=== PATIENT | female | born 1945 | race African-American/Black ===

== ENCOUNTER 2017-03-15 10:46 | Emergency (ER) | payer OTHER, MEDICAID ==
[~2017-03-15] VITALS: Ht 170.2 cm; Wt 83.0 kg
[~2017-03-15 10:46] MED LIST: ASPI-1079 PO; ATEN1TAB42 PO; ATOR40TA70 PO; CHOL500010 PO; CYAN100096 PO; DOXYCYCLINE; FERR1TAB PO; LISI10TA5 PO; OMEP20CA4 PO; [UNRECOGNIZED DRUG - OTHER]; [UNRECOGNIZED DRUG - OTHER]
[2017-03-15 11:35] LABS: BASOPHILS % 0.7 % (0.0-2.0); EOSINOPHILS % 1.1 % (0.0-5.0); HEMATOCRIT. 37.6 % (36.0-48.0); HEMOGLOBIN. 12.1 g/dL (12.0-16.0); LYMPHOCYTES % 16.1 % (20.0-50.0); MEAN CORPUSCULAR HGB CONC 32.2 g/dL (31.0-37.0); MEAN CORPUSCULAR VOLUME 90.1 fL (81.0-99.0); MEAN PLATELET VOLUME 7.6 fl (7.4-10.4); MONOCYTES % 5.5 % (2.0-8.0); NEUTROPHILS % 76.6 % (40.0-76.0); PLATELET 198 x1000/uL (130-400); RED BLOOD CELL COUNT 4.17 mill/uL (4.2-5.4); RED CELL DISTRIBUTION WIDTH 13.5 % (11.6-14.6); WHITE BLOOD COUNT 6.1 x1000/uL (4.5-11.0)
[2017-03-15 11:44] LABS: ALBUMIN 3.6 g/dL (3.4-5.0); ANION GAP 12; CALCIUM 9.3 mg/dL (8.5-10.1); CARBON DIOXIDE 25 mEq/L (21-32); CHLORIDE 111 mEq/L (98-107); INDEX HEMOLYSI 1 (1-3); INDEX ICTERIC 1 (1-4); INDEX LIPEMIC 1 (1-3); UREA NITROGEN BLOOD 56 mg/dL (7-21)
[2017-03-15 11:51] LABS: ALANINE AMINOTRANSFERASE 21 IU/L (13-61); TROPONIN I < 0.02 ng/mL (0.00-0.04); eGFR 24 mL/min (>60)
[2017-03-15 13:25] LABS: CLARITY URINE CLOUDY (CLEAR); COLOR URINE YELLOW (YELLOW); GLUCOSE URINE NEGATIVE (NEGATIVE); KETONES URINE NEGATIVE (NEGATIVE); LEUKOCYTE ESTERASE URINE 3+ (NEGATIVE); NITRITE URINE NEGATIVE (NEGATIVE); OCCULT BLOOD URINE NEGATIVE (NEGATIVE); PH URINE 5.5 (4.5-8.0); PROTEIN URINE 2+ (NEGATIVE); SPECIFIC GRAVITY URINE 1.015 (1.005-1.030); UROBILINOGEN URINE 0.2 E.U./dL (0.2-1.0)
[2017-03-15 13:51] LABS: HYALINE CASTS URINE 0-5 /lpf; RBC URINE 0-2 /hpf (0-2); SQUAMOUS EPITHELIAL CELL URINE 3+ /lpf (RARE/1+); WBC URINE 15-25 /hpf (0-2)
[2017-03-15 13:52] LABS: BACTERIA URINE 3+
[2017-03-15] MEDS ORDERED: DEXT 10% WATER 1,000 ML IV ONE (14:06)
[2017-03-15] MEDS ORDERED: CEFTRIAXONE 1 G PREMIX 50 ML IV ONE (14:15)
[2017-03-15 16:58] VITALS: BP 211/98
[2017-03-15] MEDS ORDERED: DEXTROSE 50% WATER 50ML SYRINGE IV ONE ×2 (17:10→17:45)
== END 2017-03-15 17:46 | disposition short-term general hospital (02) ==
LOC: ER 11:25
DX: E11.649 Type 2 diabetes mellitus with hypoglycemia without coma (principal); E11.22 Type 2 diabetes mellitus with diabetic chronic kidney disease; N18.6 End stage renal disease; I50.9 Heart failure, unspecified; Z79.1 Long term (current) use of non-steroidal anti-inflammatories (NSAID); Z79.82 Long term (current) use of aspirin; Z79.899 Other long term (current) drug therapy
CPT/HCPCS: 36415; 71010; 72100; 73502; 80053; 81001; 82962; 84484; 85025; 87086; 93005; 96365; 96366; 96375; 99285; J0696

== ENCOUNTER 2021-03-15 18:03 | Emergency (ER) | payer OTHER, MEDICAID ==
[~2021-03-15] VITALS: Ht 165.1 cm; Wt 71.0 kg
[~2021-03-15 18:03] MED LIST changes: +LISI10TA26 PO; -LISI10TA5 PO
[2021-03-15 21:17] LABS: BASOPHILS % 0.5 % (0.0-2.0); HEMATOCRIT. 31.3 % (36.0-48.0); HEMOGLOBIN. 10.4 g/dL (12.0-16.0); LYMPHOCYTES % 26.5 % (20.0-50.0); MEAN CORPUSCULAR HEMOGLOBIN 30.1 pg (28.0-32.0); MEAN CORPUSCULAR VOLUME 90.7 fL (81.0-99.0); MEAN PLATELET VOLUME 8.9 fl (7.4-10.4); MONOCYTES % 8.9 % (2.0-8.0); NEUTROPHILS % 59.1 % (40.0-76.0); PLATELET 192 x1000/uL (130-400); RED BLOOD CELL COUNT 3.45 mill/uL (4.2-5.4); RED CELL DISTRIBUTION WIDTH 13.8 % (11.6-14.6)
[2021-03-15 21:20] LABS: CHLORIDE 116 mEq/L (98-107)
[2021-03-15 21:25] LABS: PROTHROMBIN TIME 10.9 sec (9.6-11.0)
[2021-03-15] MEDS ORDERED: DEXTROSE 50% WATER 50ML SYRINGE IV NR (21:45)
[2021-03-15] MEDS ORDERED: SODIUM CHLORIDE 0.9% 500 ML IV ONE (21:45)
[2021-03-15 21:53] LABS: CLARITY URINE CLEAR (CLEAR); COLOR URINE YELLOW (YELLOW); KETONES URINE NEGATIVE (NEGATIVE); LEUKOCYTE ESTERASE URINE NEGATIVE (NEGATIVE); NITRITE URINE NEGATIVE (NEGATIVE); OCCULT BLOOD URINE NEGATIVE (NEGATIVE); PROTEIN URINE 2+ (NEGATIVE); SPECIFIC GRAVITY URINE 1.014 (1.005-1.030); UROBILINOGEN URINE 0.2 E.U./dL (0.2-1.0)
[2021-03-15 23:51] VITALS: BP 155/71
== END 2021-03-16 00:20 | disposition short-term general hospital (02) ==
LOC: ER 18:03
DX: E11.649 Type 2 diabetes mellitus with hypoglycemia without coma (principal); N17.9 Acute kidney failure, unspecified; I50.9 Heart failure, unspecified; J44.9 Chronic obstructive pulmonary disease, unspecified; Z86.73 Personal history of transient ischemic attack (TIA), and cerebral infarction without residual deficits
CPT/HCPCS: 36415; 71045; 80053; 81003; 82962; 83605; 84145; 84484; 85025; 93005; 96361; 96374; 99285

== ENCOUNTER 2023-06-28 15:09 | Emergency (ER) | payer OTHER, MEDICAID ==
[~2023-06-28] VITALS: Ht 162.6 cm; Wt 64.0 kg
[2023-06-28] MEDS ORDERED: METHYLPREDNISOLONE SOD SUCC 125MG/2ML (ACT-O-VIAL) IV STA (15:13)
[2023-06-28] MEDS ORDERED: IPRATROPIUM BROMIDE (0.02%) 0.5MG/2.5ML NEB HHN STA (15:13)
[2023-06-28] MEDS ORDERED: ALBUTEROL (0.083%) 2.5MG/3ML NEB HHN STA (15:13)
[2023-06-28] MEDS ORDERED: AZITHROMYCIN 500MG/250ML 250 ML IV ONE (15:15)
[2023-06-28] MEDS ORDERED: METHYLPREDNISOLONE SOD SUCC 125MG VIAL IV NR (15:45)
[2023-06-28 16:23] LABS: BASOPHILS % 0.9 % (0.0-2.0); EOSINOPHILS % 0.6 % (0.0-5.0); HEMATOCRIT. 27.6 % (36.0-48.0); LYMPHOCYTES % 24.1 % (20.0-50.0); MEAN CORPUSCULAR HEMOGLOBIN 29.2 pg (28.0-32.0); MEAN CORPUSCULAR HGB CONC 32.7 g/dL (31.0-37.0); MEAN CORPUSCULAR VOLUME 89.3 fL (81.0-99.0); MEAN PLATELET VOLUME 6.9 fl (7.4-10.4); MONOCYTES % 12.3 % (2.0-8.0); NEUTROPHILS % 62.1 % (40.0-76.0); PLATELET 137 x1000/uL (130-400); RED CELL DISTRIBUTION WIDTH 14.1 % (11.6-14.6)
[2023-06-28 16:34] LABS: CHLORIDE 111 mEq/L (98-107); INDEX HEMOLYSI 1 (1-3); INDEX ICTERIC 1 (1-4); INDEX LIPEMIC 1 (1-3); POTASSIUM 4.9 mEq/L (3.5-5.1); SODIUM 139 mEq/L (136-145)
[2023-06-28 16:37] LABS: INR 1.1; PARTIAL THROMBOPLASTIN TIME 29.4 sec (23.4-31.0); PROTHROMBIN TIME 11.4 sec (9.6-11.0)
[2023-06-28 16:44] LABS: ALANINE AMINOTRANSFERASE 14 IU/L (13-61); ALBUMIN 3.1 g/dL (3.4-5.0); ASPARTATE AMINOTRANSFERASE 20 IU/L (15-37); BILIRUBIN TOTAL 0.6 mg/dL (0.1-1.0); CALCIUM 9.6 mg/dL (8.5-10.1); CARBON DIOXIDE 23 mEq/L (21-32); CREATININE 4.8 mg/dL (0.6-1.3); GLUCOSE 110 mg/dL (70-105); NT PRO B-TYPE NATRIURETIC PEP 4028 pg/mL (5-125); PROTEIN TOTAL 7.6 g/dL (6.0-8.3); TROPONIN I HIGH SENSITIVITY 21 ng/L (<54); UREA NITROGEN BLOOD 62 mg/dL (7-21)
[2023-06-28] MEDS ORDERED: ALBUTEROL (0.083%) 2.5MG/3ML NEB HHN NR (20:45)
[2023-06-28] MEDS ORDERED: IPRATROPIUM BROMIDE (0.02%) 0.5MG/2.5ML NEB HHN NR (20:45)
[2023-06-28 21:00] VITALS: PULSE 82; RESP 20; O2SAT 97
[2023-06-28] MEDS: FUROSEMIDE 40MG/4ML VIAL IVP ONE ×2 (22:28→22:29)
[2023-06-28 23:37] VITALS: BP 145/67; PULSE 73; RESP 15; TEMP 98.4
== END 2023-06-29 00:24 | disposition short-term general hospital (02) ==
LOC: ER 15:09 → EDBEDREQ 20:14 → ER 06-29 00:24
DX: I50.9 Heart failure, unspecified (principal); J44.9 Chronic obstructive pulmonary disease, unspecified; Z86.73 Personal history of transient ischemic attack (TIA), and cerebral infarction without residual deficits; N17.9 Acute kidney failure, unspecified; Z79.899 Other long term (current) drug therapy; Z20.822 Contact with and (suspected) exposure to COVID-19
CPT/HCPCS: 99285; 96365; 71045; 96375; 87426; 80053; 82962; 83880; 83605; 85025; 85610; 85730; 87040; 84484; 87804 ×2; 36415; 94640; 93005; J0456; J1940; J2930; C9803

== ENCOUNTER 2024-01-09 17:19 | Emergency (ER) | payer OTHER, MEDICAID ==
[~2024-01-09] VITALS: Ht 167.6 cm; Wt 64.0 kg
[2024-01-09 17:26] VITALS: O2SAT 97
[2024-01-09 18:48] VITALS: TEMP 97.3
[2024-01-09 19:04] LABS: BASOPHILS % 0.6 % (0.0-2.0); EOSINOPHILS % 2.6 % (0.0-5.0); HEMOGLOBIN. 11.5 g/dL (12.0-16.0); LYMPHOCYTES % 35.8 % (20.0-50.0); MEAN CORPUSCULAR HEMOGLOBIN 32.1 pg (28.0-32.0); MEAN CORPUSCULAR VOLUME 94.6 fL (81.0-99.0); MEAN PLATELET VOLUME 7.3 fl (7.4-10.4); MONOCYTES % 8.1 % (2.0-8.0); NEUTROPHILS % 52.9 % (40.0-76.0); PLATELET 168 x1000/uL (130-400); RED BLOOD CELL COUNT 3.59 mill/uL (4.2-5.4); RED CELL DISTRIBUTION WIDTH 15.8 % (11.6-14.6); WHITE BLOOD COUNT 4.9 x1000/uL (4.5-11.0)
[2024-01-09 19:11] LABS: ALANINE AMINOTRANSFERASE 7 IU/L (10-49); ALBUMIN 4.1 g/dL (3.2-4.8); ASPARTATE AMINOTRANSFERASE 34 IU/L (<34); BILIRUBIN TOTAL 0.5 mg/dL (0.1-1.0); CALCIUM 8.9 mg/dL (8.7-10.4); CARBON DIOXIDE 28 mEq/L (21-32); CHLORIDE 100 mEq/L (98-107); CREATININE 1.7 mg/dL (0.6-1.0); GLUCOSE 91 mg/dL (70-105); POTASSIUM 5.1 mEq/L (3.5-5.1); PROTEIN TOTAL 7.5 g/dL (6.0-8.3); SODIUM 136 mEq/L (136-145); TROPONIN I HIGH SENSITIVITY 7 ng/L (3.0-34); UREA NITROGEN BLOOD 9 mg/dL (9-23)
[2024-01-09 22:46] VITALS: BP 143/58; PULSE 70; RESP 13
== END 2024-01-09 20:43 | disposition short-term general hospital (02) ==
LOC: ER 17:32 → EDBEDREQ 17:39 → ER 20:43
DX: I24.9 Acute ischemic heart disease, unspecified (principal); E11.22 Type 2 diabetes mellitus with diabetic chronic kidney disease; N18.6 End stage renal disease; J44.9 Chronic obstructive pulmonary disease, unspecified; I50.9 Heart failure, unspecified; Z88.6 Allergy status to analgesic agent; Z79.899 Other long term (current) drug therapy; Z86.73 Personal history of transient ischemic attack (TIA), and cerebral infarction without residual deficits; Z99.2 Dependence on renal dialysis
CPT/HCPCS: 36415; 71045; 80053; 83880; 84484; 85025; 93005; 99291

== ENCOUNTER 2024-01-23 16:40 | Emergency (ER) | payer OTHER, MEDICAID ==
[~2024-01-23] VITALS: Ht 165.1 cm; Wt 71.0 kg
[2024-01-23 16:48] VITALS: O2SAT 100
[2024-01-23] MEDS: DEXTROSE 50% WATER 50ML SYRINGE IV ONE (18:30)
[2024-01-23 20:08] LABS: BASOPHILS % 0.7 % (0.0-2.0); EOSINOPHILS % 3.7 % (0.0-5.0); HEMATOCRIT. 35.8 % (36.0-48.0); HEMOGLOBIN. 11.7 g/dL (12.0-16.0); LYMPHOCYTES % 32.8 % (20.0-50.0); MEAN CORPUSCULAR HEMOGLOBIN 31.3 pg (28.0-32.0); MEAN CORPUSCULAR HGB CONC 32.7 g/dL (31.0-37.0); MEAN CORPUSCULAR VOLUME 95.7 fL (81.0-99.0); MEAN PLATELET VOLUME 7.7 fl (7.4-10.4); MONOCYTES % 10.5 % (2.0-8.0); NEUTROPHILS % 52.3 % (40.0-76.0); PLATELET 189 x1000/uL (130-400); RED BLOOD CELL COUNT 3.75 mill/uL (4.2-5.4); RED CELL DISTRIBUTION WIDTH 15.8 % (11.6-14.6); WHITE BLOOD COUNT 5.3 x1000/uL (4.5-11.0)
[2024-01-23 20:17] LABS: INR 2.6; PROTHROMBIN TIME 27.2 sec (9.6-11.0)
[2024-01-23 20:23] LABS: ALANINE AMINOTRANSFERASE < 7 IU/L (10-49); ALBUMIN 3.9 g/dL (3.2-4.8); ASPARTATE AMINOTRANSFERASE 20 IU/L (<34); BILIRUBIN TOTAL 0.4 mg/dL (0.1-1.0); CALCIUM 9.3 mg/dL (8.7-10.4); CARBON DIOXIDE 30 mEq/L (21-32); CHLORIDE 103 mEq/L (98-107); CREATININE 1.9 mg/dL (0.6-1.0); GLUCOSE 131 mg/dL (70-105); POTASSIUM 3.7 mEq/L (3.5-5.1); PROTEIN TOTAL 7.8 g/dL (6.0-8.3); SODIUM 137 mEq/L (136-145); TROPONIN I HIGH SENSITIVITY 11 ng/L (3.0-34); UREA NITROGEN BLOOD 12 mg/dL (9-23)
[2024-01-23 22:35] VITALS: BP 98/42; PULSE 67; RESP 14; TEMP 98.1
== END 2024-01-23 23:08 | disposition short-term general hospital (02) ==
LOC: ER 16:40 → EDBEDREQ 16:56 → ER 23:08
DX: R41.82 Altered mental status, unspecified (principal); N18.6 End stage renal disease; N17.9 Acute kidney failure, unspecified; E11.9 Type 2 diabetes mellitus without complications; J44.9 Chronic obstructive pulmonary disease, unspecified; I50.9 Heart failure, unspecified; Z86.73 Personal history of transient ischemic attack (TIA), and cerebral infarction without residual deficits; Z99.2 Dependence on renal dialysis; Z88.8 Allergy status to other drugs, medicaments and biological substances
CPT/HCPCS: 36415; 71045; 80053; 82962; 83605; 84484; 85025; 86850; 86900; 93005; 96374; 99285

== ENCOUNTER 2024-01-29 18:42 | Emergency (ER) | payer OTHER, MEDICAID ==
[~2024-01-29] VITALS: Ht 162.6 cm; Wt 57.0 kg
[2024-01-29 18:53] VITALS: O2SAT 100
[2024-01-29 19:55] LABS: BASOPHILS % 0.5 % (0.0-2.0); EOSINOPHILS % 3.8 % (0.0-5.0); HEMATOCRIT. 30.1 % (36.0-48.0); LYMPHOCYTES % 40.2 % (20.0-50.0); MEAN CORPUSCULAR HEMOGLOBIN 31.2 pg (28.0-32.0); MEAN CORPUSCULAR HGB CONC 33.1 g/dL (31.0-37.0); MEAN CORPUSCULAR VOLUME 94.2 fL (81.0-99.0); MEAN PLATELET VOLUME 8.1 fl (7.4-10.4); MONOCYTES % 9.2 % (2.0-8.0); NEUTROPHILS % 46.3 % (40.0-76.0); PLATELET 166 x1000/uL (130-400); RED CELL DISTRIBUTION WIDTH 15.5 % (11.6-14.6); WHITE BLOOD COUNT 5.2 x1000/uL (4.5-11.0)
[2024-01-29 20:04] LABS: PARTIAL THROMBOPLASTIN TIME 47.2 sec (23.4-31.0); PROTHROMBIN TIME 40.8 sec (9.6-11.0)
[2024-01-29 20:12] LABS: ALANINE AMINOTRANSFERASE 8 IU/L (10-49); ALBUMIN 3.7 g/dL (3.2-4.8); ASPARTATE AMINOTRANSFERASE 18 IU/L (<34); BILIRUBIN TOTAL 0.3 mg/dL (0.1-1.0); CALCIUM 8.9 mg/dL (8.7-10.4); CARBON DIOXIDE 28 mEq/L (21-32); CHLORIDE 103 mEq/L (98-107); GLUCOSE 84 mg/dL (70-105); SODIUM 137 mEq/L (136-145); TROPONIN I HIGH SENSITIVITY 8 ng/L (3.0-34); UREA NITROGEN BLOOD 42 mg/dL (9-23)
[2024-01-29 20:17] LABS: CREATININE 4.1 mg/dL (0.6-1.0)
[2024-01-29 22:30] VITALS: BP 123/74; PULSE 63; RESP 14; TEMP 97.9
== END 2024-01-30 00:08 | disposition home or self-care (01) ==
LOC: ER 18:42
DX: R79.1 Abnormal coagulation profile (principal); J44.1 Chronic obstructive pulmonary disease with (acute) exacerbation; I11.0 Hypertensive heart disease with heart failure; I50.9 Heart failure, unspecified; Z88.6 Allergy status to analgesic agent; Z79.899 Other long term (current) drug therapy; Z86.73 Personal history of transient ischemic attack (TIA), and cerebral infarction without residual deficits
CPT/HCPCS: 36415; 71045; 80053; 83880; 84484; 85025; 93005; 99285

== ENCOUNTER 2024-01-30 12:37 | Emergency (ER) | payer OTHER, MEDICAID ==
[~2024-01-30] VITALS: Ht 170.2 cm; Wt 73.0 kg
[2024-01-30 12:41] VITALS: O2SAT 98
[2024-01-30] MEDS: SODIUM CHLORIDE 0.9% 1,000 ML IV ONE (13:36)
[2024-01-30] MEDS: ONDANSETRON HCL 4MG/2ML INJ IV STA (13:36)
[2024-01-30 14:41] LABS: BASOPHILS % 1.3 % (0.0-2.0); EOSINOPHILS % 3.7 % (0.0-5.0); HEMATOCRIT. 34.7 % (36.0-48.0); HEMOGLOBIN. 11.5 g/dL (12.0-16.0); LYMPHOCYTES % 32.8 % (20.0-50.0); MEAN CORPUSCULAR HEMOGLOBIN 31.6 pg (28.0-32.0); MEAN CORPUSCULAR HGB CONC 33.1 g/dL (31.0-37.0); MEAN CORPUSCULAR VOLUME 95.5 fL (81.0-99.0); MONOCYTES % 8.8 % (2.0-8.0); NEUTROPHILS % 53.4 % (40.0-76.0); PLATELET 191 x1000/uL (130-400); RED BLOOD CELL COUNT 3.64 mill/uL (4.2-5.4); RED CELL DISTRIBUTION WIDTH 15.6 % (11.6-14.6); WHITE BLOOD COUNT 5.6 x1000/uL (4.5-11.0)
[2024-01-30 15:27] LABS: ALANINE AMINOTRANSFERASE 7 IU/L (10-49); ALBUMIN 3.6 g/dL (3.2-4.8); ASPARTATE AMINOTRANSFERASE 15 IU/L (<34); BILIRUBIN TOTAL 0.3 mg/dL (0.1-1.0); CALCIUM 8.7 mg/dL (8.7-10.4); CARBON DIOXIDE 26 mEq/L (21-32); CHLORIDE 106 mEq/L (98-107); GLUCOSE 92 mg/dL (70-105); POTASSIUM 4.8 mEq/L (3.5-5.1); PROTEIN TOTAL 7.2 g/dL (6.0-8.3); SODIUM 139 mEq/L (136-145); TROPONIN I HIGH SENSITIVITY 8 ng/L (3.0-34); UREA NITROGEN BLOOD 49 mg/dL (9-23)
[2024-01-30 15:36] LABS: CREATININE 5.4 mg/dL (0.6-1.0)
[2024-01-30] MEDS: ONDANSETRON HCL 4MG/2ML INJ IV ONE (17:02)
[2024-01-30 19:33] VITALS: BP 127/56; PULSE 80; RESP 16; TEMP 97.9
== END 2024-01-30 19:43 | disposition short-term general hospital (02) ==
LOC: ER 12:37
DX: R11.2 Nausea with vomiting, unspecified (principal); E11.22 Type 2 diabetes mellitus with diabetic chronic kidney disease; N18.6 End stage renal disease; I50.9 Heart failure, unspecified; J44.9 Chronic obstructive pulmonary disease, unspecified; Z99.2 Dependence on renal dialysis; Z86.73 Personal history of transient ischemic attack (TIA), and cerebral infarction without residual deficits; Z79.899 Other long term (current) drug therapy
CPT/HCPCS: 99285; 96374; 96361; 71045; 80053; 83880; 83690; 85025; 84484; 36415; 93005; 96376; J2405; J7030

== ENCOUNTER 2024-02-10 13:18 | Emergency (ER) | payer OTHER, MEDICAID ==
[~2024-02-10] VITALS: Ht 162.6 cm; Wt 55.0 kg
[2024-02-10 13:19] VITALS: BP 90/40; PULSE 60; RESP 16; O2SAT 100
[2024-02-10] MEDS: ONDANSETRON HCL 4MG/2ML INJ IV STA (14:44)
[2024-02-10] MEDS: SODIUM CHLORIDE 0.9% 1,000 ML IV ONE (14:44)
[2024-02-10] MEDS: FAMOTIDINE 20MG/2ML VIAL IV STA (14:44)
[2024-02-10 15:04] LABS: BASOPHILS % 0.8 % (0.0-2.0); EOSINOPHILS % 2.7 % (0.0-5.0); HEMATOCRIT. 32.6 % (36.0-48.0); HEMOGLOBIN. 10.8 g/dL (12.0-16.0); LYMPHOCYTES % 26.5 % (20.0-50.0); MEAN CORPUSCULAR HEMOGLOBIN 31.8 pg (28.0-32.0); MEAN CORPUSCULAR VOLUME 96.1 fL (81.0-99.0); MEAN PLATELET VOLUME 8.5 fl (7.4-10.4); MONOCYTES % 7.7 % (2.0-8.0); NEUTROPHILS % 62.3 % (40.0-76.0); PLATELET 182 x1000/uL (130-400); RED BLOOD CELL COUNT 3.39 mill/uL (4.2-5.4); RED CELL DISTRIBUTION WIDTH 15.1 % (11.6-14.6); WHITE BLOOD COUNT 5.4 x1000/uL (4.5-11.0)
[2024-02-10 15:16] LABS: INR 1.9; PROTHROMBIN TIME 20.3 sec (9.6-11.0)
[2024-02-10 15:20] LABS: ALANINE AMINOTRANSFERASE 9 IU/L (10-49); ALBUMIN 4.3 g/dL (3.2-4.8); ASPARTATE AMINOTRANSFERASE 16 IU/L (<34); BILIRUBIN TOTAL 0.2 mg/dL (0.1-1.0); CALCIUM 9.6 mg/dL (8.7-10.4); CARBON DIOXIDE 27 mEq/L (21-32); CHLORIDE 104 mEq/L (98-107); CREATININE 4.8 mg/dL (0.6-1.0); GLUCOSE 133 mg/dL (70-105); POTASSIUM 4.3 mEq/L (3.5-5.1); PROTEIN TOTAL 8.3 g/dL (6.0-8.3); SODIUM 139 mEq/L (136-145); TROPONIN I HIGH SENSITIVITY 7 ng/L (3.0-34); UREA NITROGEN BLOOD 32 mg/dL (9-23)
[2024-02-10 16:08] LABS: TROPONIN I HIGH SENSITIVITY 7 ng/L (3.0-34)
[2024-02-10] MEDS ORDERED: ACETAMINOPHEN 325MG TABLET PO PRN (18:15)
[2024-02-10] MEDS ORDERED: CLONIDINE 0.1MG TABLET PO PRN (18:15)
[2024-02-10] MEDS ORDERED: GUAIFENESIN 200MG/10ML SUGAR FREE UDC PO PRN (18:15)
[2024-02-10] MEDS ORDERED: DEXTROSE 50% WATER 50ML SYRINGE IV PRN (18:30)
[2024-02-10] MEDS ORDERED: ONDANSETRON HCL 4MG/2ML INJ IV PRN (19:15)
[2024-02-10] MEDS ORDERED: TRAM50TA3 MT (19:22)
[2024-02-10] MEDS ORDERED: LORA5TAB8 MT (19:22)
[2024-02-10] MEDS ORDERED: TRAMADOL 50MG TABLET PO ONE (19:30)
[2024-02-10] MEDS ORDERED: ATORVASTATIN CALCIUM 40MG TABLET PO SCH (21:00)
[2024-02-10] MEDS ORDERED: INSULIN LISPRO 100 UNITS/ML SUBCUT SCH (21:00)
[2024-02-10] MEDS ORDERED: BLOOD SUGAR DIAGNOSTIC STRIP TEST SCH (21:00)
[2024-02-10] MEDS ORDERED: IOHEXOL-300 100 ML BOTTLE ONE (23:58)
[2024-02-11] MEDS ORDERED: IPRATROPIUM/ALBUTEROL 0.5-3(2.5)MG/3ML NEB HHN SCH
[2024-02-11] MEDS ORDERED: PANTOPRAZOLE 40MG DR TABLET PO SCH (07:50)
== END 2024-02-10 22:15 | disposition home or self-care (01) ==
LOC: ER 13:36
DX: R10.9 Unspecified abdominal pain (principal); R11.2 Nausea with vomiting, unspecified; I50.9 Heart failure, unspecified; J44.9 Chronic obstructive pulmonary disease, unspecified; E11.9 Type 2 diabetes mellitus without complications; Z99.2 Dependence on renal dialysis; Z86.73 Personal history of transient ischemic attack (TIA), and cerebral infarction without residual deficits; Z79.899 Other long term (current) drug therapy
CPT/HCPCS: 99285; 74177; 96374; 96361; 96375; 80053; 83605; 83690; 85025; 85610; 84484; 36415; Q9967; J3490; J2405; J7030

== ENCOUNTER 2024-06-08 20:12 | Emergency (ER) | payer OTHER, MEDICAID ==
[~2024-06-08] VITALS: Ht 157.5 cm; Wt 56.0 kg
[~2024-06-08 20:12] MED LIST changes: +LORA5TAB8 MT; +TRAM50TA3 MT
[2024-06-08 20:19] VITALS: TEMP 98.4; O2SAT 99
[2024-06-08 21:08] LABS: BASOPHILS % 0.5 % (0.0-2.0); HEMATOCRIT. 31.5 % (36.0-48.0); HEMOGLOBIN. 10.5 g/dL (12.0-16.0); LYMPHOCYTES % 31.4 % (20.0-50.0); MEAN CORPUSCULAR HGB CONC 33.3 g/dL (31.0-37.0); MEAN PLATELET VOLUME 7.5 fl (7.4-10.4); MONOCYTES % 10.2 % (2.0-8.0); NEUTROPHILS % 52.9 % (40.0-76.0); PLATELET 176 x1000/uL (130-400); RED BLOOD CELL COUNT 3.28 mill/uL (4.2-5.4); RED CELL DISTRIBUTION WIDTH 14.1 % (11.6-14.6); WHITE BLOOD COUNT 6.1 x1000/uL (4.5-11.0)
[2024-06-08 21:16] LABS: CHLORIDE 100 mEq/L (98-107); POTASSIUM 3.4 mEq/L (3.5-5.1); SODIUM 138 mEq/L (136-145)
[2024-06-08 21:17] LABS: CALCIUM 9.2 mg/dL (8.7-10.4); CARBON DIOXIDE 32 mEq/L (21-32); INR 2.3
[2024-06-08 21:22] LABS: GLUCOSE 155 mg/dL (70-105); UREA NITROGEN BLOOD 38 mg/dL (9-23)
[2024-06-08 21:24] LABS: ALANINE AMINOTRANSFERASE 10 IU/L (10-49); ALBUMIN 3.4 g/dL (3.2-4.8); ASPARTATE AMINOTRANSFERASE 18 IU/L (<34); BILIRUBIN DIRECT 0.1 mg/dL (<=3.0); BILIRUBIN TOTAL 0.3 mg/dL (0.1-1.0); PROTEIN TOTAL 6.5 g/dL (6.0-8.3)
[2024-06-08] MEDS: SODIUM CHLORIDE 0.9% 250 ML IV ONE (21:45)
[2024-06-09 00:37] VITALS: BP 121/67; PULSE 98; RESP 14
== END 2024-06-09 01:41 | disposition short-term general hospital (02) ==
LOC: ER 20:12 → CANBEDREQ 06-09 00:40 → ER 06-09 01:41
DX: R19.7 Diarrhea, unspecified (principal); I50.9 Heart failure, unspecified; J44.9 Chronic obstructive pulmonary disease, unspecified; I12.0 Hypertensive chronic kidney disease with stage 5 chronic kidney disease or end stage renal disease; E11.22 Type 2 diabetes mellitus with diabetic chronic kidney disease; N18.6 End stage renal disease; Z99.2 Dependence on renal dialysis; Z79.899 Other long term (current) drug therapy
CPT/HCPCS: 36415; 74176; 80048; 80076; 83605; 85025; 96360; 99285

== ENCOUNTER 2024-08-01 16:48 | Inpatient (IN) | payer MEDICARE, MEDICAID ==
[~2024-08-01] VITALS: Ht 160 cm; Wt 56.7 kg
[2024-08-01 16:51] VITALS: O2SAT 99
[2024-08-01] MEDS: ONDANSETRON HCL 4MG/2ML INJ IV STA (17:53)
[2024-08-01 18:31] LABS: BASOPHILS % 0.7 % (0.0-2.0); EOSINOPHILS % 2.7 % (0.0-5.0); HEMATOCRIT. 34.3 % (36.0-48.0); LYMPHOCYTES % 32.7 % (20.0-50.0); MEAN CORPUSCULAR HEMOGLOBIN 32.1 pg (28.0-32.0); MEAN CORPUSCULAR HGB CONC 32.2 g/dL (31.0-37.0); MEAN CORPUSCULAR VOLUME 99.6 fL (81.0-99.0); MEAN PLATELET VOLUME 7.6 fl (7.4-10.4); MONOCYTES % 8.8 % (2.0-8.0); NEUTROPHILS % 55.1 % (40.0-76.0); PLATELET 171 x1000/uL (130-400); RED BLOOD CELL COUNT 3.44 mill/uL (4.2-5.4); RED CELL DISTRIBUTION WIDTH 14.4 % (11.6-14.6); WHITE BLOOD COUNT 6.3 x1000/uL (4.5-11.0)
[2024-08-01 18:46] LABS: CHLORIDE 109 mEq/L (98-107); POTASSIUM 4.4 mEq/L (3.5-5.1); SODIUM 143 mEq/L (136-145)
[2024-08-01 18:47] LABS: CALCIUM 9.7 mg/dL (8.7-10.4); CARBON DIOXIDE 28 mEq/L (21-32)
[2024-08-01 18:52] LABS: CREATININE 3.9 mg/dL (0.6-1.0); GLUCOSE 112 mg/dL (70-105); UREA NITROGEN BLOOD 34 mg/dL (9-23)
[2024-08-01 19:06] LABS: TROPONIN I HIGH SENSITIVITY 42 ng/L (3.0-34)
[2024-08-01 19:59] LABS: INR 1.3; PROTHROMBIN TIME 14.6 sec (9.6-11.0)
[2024-08-01] MEDS ORDERED: LIDOCAINE 5% PATCH TOP ONE (20:30)
[2024-08-01] MEDS ORDERED: CLOPIDOGREL 75MG TABLET PO ONE (20:30)
[2024-08-02] MEDS: LIDOCAINE 5% PATCH TOP SCH (00:46)
[2024-08-02] MEDS: CLOPIDOGREL 75MG TABLET PO SCH (00:53)
[2024-08-02 03:58] VITALS: BP 116/43; PULSE 89; RESP 18; TEMP 36.61404; O2SAT 92
[2024-08-02] MEDS ORDERED: DIPHENHYDRAMINE 50MG/ML VIAL IV PRN (09:00)
[2024-08-02] MEDS ORDERED: IPRATROPIUM/ALBUTEROL 0.5-3(2.5)MG/3ML NEB HHN PRN (09:00)
[2024-08-02] MEDS ORDERED: ACETAMINOPHEN 325MG TABLET PO PRN (09:00)
[2024-08-02 09:30] VITALS: BP 114/56; PULSE 90; RESP 18; TEMP 36.33624; O2SAT 98
[2024-08-02] MEDS: ONDANSETRON HCL 4MG/2ML INJ IV PRN (09:42)
[2024-08-02 11:38] VITALS: BP 119/76; PULSE 88; RESP 18; TEMP 36.16956; O2SAT 96
[2024-08-02 12:05] VITALS: BP 151/64; PULSE 86; RESP 20; TEMP 35.9176
[2024-08-02 16:00] VITALS: BP 174/68; PULSE 76; RESP 18; TEMP 36.16956; O2SAT 99
[2024-08-02] MEDS ORDERED: OMEPRAZOLE 20MG CAPSULE EXTENDED RELEASE PO SCH (16:45)
[2024-08-02] MEDS: LISINOPRIL 10MG TABLET PO SCH (18:01)
[2024-08-02] MEDS: CLONIDINE 0.1MG TABLET PO PRN (18:02)
[2024-08-02 20:00] VITALS: BP 127/53; PULSE 70; RESP 19; TEMP 36.72516; O2SAT 100
[2024-08-02 20:07] LABS: HEPATITIS B SURFACE ANTIGEN NEGATIVE (Negative)
[2024-08-02 20:28] LABS: HEPATITIS A AB IGM NEGATIVE (Negative)
[2024-08-02 20:29] LABS: HEPATITIS B CORE AB IGM NEGATIVE (Negative); HEPATITIS C AB NON REACTIVE (Neg) (Negative)
[2024-08-02] MEDS: ATORVASTATIN CALCIUM 40MG TABLET PO SCH (21:13)
[2024-08-03] VITALS (10 sets, daily range): BP systolic 115–142; BP diastolic 49–77; PULSE 61–80; RESP 18–19; TEMP 35.78064–36.83628; O2SAT 98–100
[2024-08-03] MEDS: PANTOPRAZOLE 40MG DR TABLET PO SCH (06:28)
[2024-08-03] MEDS: CYANOCOBALAMIN 1000MCG TABLET PO SCH (09:00)
[2024-08-03 13:30] LABS: POTASSIUM 3.7 mEq/L (3.5-5.1)
[2024-08-03 13:32] LABS: BASOPHILS % 0.5 % (0.0-2.0); CALCIUM 9.2 mg/dL (8.7-10.4); EOSINOPHILS % 2.8 % (0.0-5.0); HEMATOCRIT. 33.9 % (36.0-48.0); HEMOGLOBIN. 10.8 g/dL (12.0-16.0); LYMPHOCYTES % 24.9 % (20.0-50.0); MEAN CORPUSCULAR HGB CONC 31.8 g/dL (31.0-37.0); MEAN CORPUSCULAR VOLUME 97.6 fL (81.0-99.0); MEAN PLATELET VOLUME 8.1 fl (7.4-10.4); MONOCYTES % 6.5 % (2.0-8.0); NEUTROPHILS % 65.3 % (40.0-76.0); PLATELET 157 x1000/uL (130-400); RED BLOOD CELL COUNT 3.47 mill/uL (4.2-5.4); RED CELL DISTRIBUTION WIDTH 14.6 % (11.6-14.6); WHITE BLOOD COUNT 5.6 x1000/uL (4.5-11.0)
[2024-08-03 13:36] LABS: CREATININE 3.2 mg/dL (0.6-1.0)
[2024-08-03 13:49] LABS: TROPONIN I HIGH SENSITIVITY 63 ng/L (3.0-34)
[2024-08-03] MEDS: TRAMADOL 50MG TABLET PO PRN (22:03)
[2024-08-04] VITALS: BP 131/69; PULSE 65; RESP 19; TEMP 36.6696; O2SAT 100
[2024-08-04 04:00] VITALS: BP 123/57; PULSE 62; RESP 19; TEMP 36.61404; O2SAT 100
[2024-08-04 07:32] LABS: CALCIUM 9.5 mg/dL (8.7-10.4); CARBON DIOXIDE 30 mEq/L (21-32); CHLORIDE 103 mEq/L (98-107); POTASSIUM 4.1 mEq/L (3.5-5.1); SODIUM 139 mEq/L (136-145)
[2024-08-04 07:38] LABS: CREATININE 3.9 mg/dL (0.6-1.0); GLUCOSE 96 mg/dL (70-105); UREA NITROGEN BLOOD 34 mg/dL (9-23)
[2024-08-04 07:49] LABS: BASOPHILS % 0.4 % (0.0-2.0); EOSINOPHILS % 4.3 % (0.0-5.0); HEMATOCRIT. 32.8 % (36.0-48.0); HEMOGLOBIN. 10.6 g/dL (12.0-16.0); LYMPHOCYTES % 35.4 % (20.0-50.0); MEAN CORPUSCULAR HEMOGLOBIN 31.1 pg (28.0-32.0); MEAN CORPUSCULAR HGB CONC 32.2 g/dL (31.0-37.0); MEAN CORPUSCULAR VOLUME 96.6 fL (81.0-99.0); MONOCYTES % 9.4 % (2.0-8.0); NEUTROPHILS % 50.5 % (40.0-76.0); PLATELET 149 x1000/uL (130-400); RED BLOOD CELL COUNT 3.39 mill/uL (4.2-5.4); RED CELL DISTRIBUTION WIDTH 14.4 % (11.6-14.6); WHITE BLOOD COUNT 5.2 x1000/uL (4.5-11.0)
[2024-08-04 08:00] VITALS: BP 106/49; PULSE 61; RESP 20; TEMP 36.33624; O2SAT 98
[2024-08-04 12:00] VITALS: BP 148/77; PULSE 65; RESP 20; TEMP 36.28068; O2SAT 96
[2024-08-04 16:17] VITALS: BP 148/77; PULSE 65; RESP 20; TEMP 36.28068; O2SAT 96
[2024-08-04 20:00] VITALS: BP 109/52; PULSE 68; RESP 19; TEMP 36.61404; O2SAT 100
[2024-08-05] VITALS (8 sets, daily range): BP systolic 114–145; BP diastolic 43–74; PULSE 63–76; RESP 17–20; TEMP 36.16956–36.89184; O2SAT 98–100
== END 2024-08-05 17:15 | disposition hospice, home (50) | DRG 291 ==
LOC: ER 16:48 → 5WST 23:00 → EDBEDREQ 08-02 00:20 → EDBEDREQTM 08-02 00:20 → 5WST 08-02 02:43 → 7EST 08-02 08:25
PROVIDERS: ADMIT Internal Medicine; ATTEND Internal Medicine
PROC: 5A1D70Z Performance of Urinary Filtration, Intermittent, Less than 6 Hours Per Day (ICD-10-PCS; principal; 2024-08-03)
PROC: 5A1D70Z Performance of Urinary Filtration, Intermittent, Less than 6 Hours Per Day (ICD-10-PCS; 2024-08-05)
DX: I13.2 Hypertensive heart and chronic kidney disease with heart failure and with stage 5 chronic kidney disease, or end stage renal disease (principal); N18.6 End stage renal disease; R53.1 Weakness; I10 Essential (primary) hypertension; I50.9 Heart failure, unspecified; E11.22 Type 2 diabetes mellitus with diabetic chronic kidney disease; E78.5 Hyperlipidemia, unspecified; D64.9 Anemia, unspecified; J44.9 Chronic obstructive pulmonary disease, unspecified; R41.82 Altered mental status, unspecified; Z86.73 Personal history of transient ischemic attack (TIA), and cerebral infarction without residual deficits; Z88.6 Allergy status to analgesic agent; Z99.2 Dependence on renal dialysis; Z91.158 Patient's noncompliance with renal dialysis for other reason
CPT/HCPCS: 36415; 71045; 80048; 83735; 83880; 84100; 84484; 85025; 86705; 86709; 87340; 90935; 93005; 93970; 99291; J2405